=== PATIENT | female | born 1980 | race Caucasian/White ===

== ENCOUNTER 2016-11-07 15:01 | Emergency (ER) ==
[2016-11-07 15:05] VITALS: BP 148/93
--- NOTE | 2016-11-07 15:44 | PROVIDER DOCUMENTATION ---
HPI-Rash/Wound/ReCheck - General Chief Complaint: Rash Stated Complaint: FEMALE Time Seen by Provider: 11/07/16 15:40 Source: patient Allergies/Adverse Reactions: Allergies Allergy/AdvReac Type Severity Reaction Status Date / Time Unable to Assess Allergy Verified 11/07/16 15:44 Home Medications: Fenofibrate Nanocrystallized [Fenofibrate] 145 mg PO QHS 01/08/16 - History of Present Illness-Dermatology Nature of Presenting Problem: 36 y/o female, seen twice here for the same thing, c/o rash x 1 month. Yary thought it was an allergic reaction, however initial management did not help. At this point, she has tried Benadryl, Hydroxyzine, Elimite ointment, Pepcid without relief. The rash has not gotten better since then. She has also treied po and topical steroids without relif. No it is in the vaginal area. Review of Systems - Adult - REVIEW OF SYSTEMS - ADULT Constitutional: reports: no symptoms reported. denies: chills, fever, fatique Eyes: reports: no symptoms reported. denies: blurred vision, double vision, eye pain Ears, Nose, Mouth & Throat: reports: no symptoms reported. denies: ear pain, nose pain, throat pain Cardiovascular: reports: no symptoms reported. denies: chest pain, palpitations Respiratory: reports: no symptoms reported. denies: cough, shortness of breath , wheezing Gastrointestinal: reports: no symptoms reported. denies: abdominal pain, diarrhea, nausea, vomiting Genitourinary: reports: no symptoms reported. denies: dysuria, discharge, frequency, incontinence Musculoskeletal: reports: no symptoms reported. denies: bone pain, back pain, muscle aches, neck pain Integumentary: reports: see HPI, rash. denies: skin thickening Neurological: reports: no symptoms reported. denies: headache/migraines Psychiatric: reports: no symptoms reported Endocrine: reports: no symptoms reported Hematologic/Lymphatic: reports: no symptoms reported Allergic/Immunologic: reports: no symptoms reported All Other Systems: Reviewed and Negative Past History - Adult - PAST MEDICAL HISTORY-ADULT Review of Records: reports: Old Records Reviewed, Nursing Assessment Review, Medications Reviewed, Social history reviewed & non-contributory. Major Childhood Illnesses: reports: denies history Cardiovascular: reports: denies history Respiratory: reports: denies history Gastrointestinal: reports: denies history Obstetrical/Gynecological: reports: denies history Genitourinary: reports: denies history Musculoskeletal: reports: denies history Neurological: reports: headaches/migraines Psychiatric: reports: depression Endocrine/Immune: reports: Diabetes Diabetes Type: Type 2 Diabetes controlled by:: PO Meds Other Conditions: reports: denies history - PRIOR SURGERIES/PROCEDURES Surgical/Procedure History: reports: hysterectomy, , other (wisdom teeth) - PRIOR HOSPITALIZATIONS Prior Hospitalizations: reports: for other non-related - IMMUNIZATION STATUS Childhood Immunizations: See Nurse Assessment Flu Vaccine: See Nurse Assessment - FAMILY HISTORY Family History: reviewed, not pertinent Physical Exam-General - PHYSICAL EXAM-ADULT Initial Vital Signs Reviewed: Yes - CONSTITUTIONAL General Appearance: appears well, alert, no apparent distress - EYES Eyes: PERRL/EOMI, pink conjunctivae - HEAD, EARS, NOSE, MOUTH & THROAT HENMT: normocephalic/atraumatic, moist mucous membranes - NECK Neck: non-tender, full range of motion, supple, normal inspection - RESPIRATORY Respiratory: chest non-tender, lungs clear, normal breath sounds, no pleuratic chest pain, no respiratory distress, no accessory muscle use. negative: respiratory distress, decreased breath sounds, accessory muscle use, crackles, rales, rhonchi, wheezing - CARDIOVASCULAR Cardiovascular: normal peripheral pulses, regular rate, rhythm, no edema - LYMPHATIC Lymphatic: no adenopathy - MUSCULOSKELETAL Extremity: normal range of motion, non-tender, normal gait - SKIN Integumentary: normal color, normal turgor, warm/dry, rash (pruritic macular rash on the torso. There is a definite yest infection of the vaginal area.) - NEUROLOGIC Neurologic: grossly normal, no motor/sensory deficits - PSYCHIATRIC Psych/Mental Status: normal mood/affect, normal thought content, normal thought process, oriented x 3 Progress - PLAN OF CARE/RESULTS Progress/Plan/Lab Results: Vital Signs Temp Pulse Resp BP Pulse Ox 11/07/16 15:04 97.9 F 92 H 18 148/93 97 Unable to Assess Allergy (Verified 11/07/16 15:44) PATIENT STATES THAT SHE IS ALLERGIC TO AN ANTIBIOTIC BUT DOES NOT KNOW THE NAME OF IT. PATIENT STATES THAT THE ANTIBIOTIC MAKES HER BREAK OUT IN HIVES. Fenofibrate Nanocrystallized [Fenofibrate] 145 mg PO QHS 01/08/16 Glipizide [Glipizide ER] 10 mg PO DAILY #60 tab.er.24 09/11/16 Metformin [Glucophage] 1,000 mg PO BID CC #60 tablet 09/11/16 Ketoconazole 2% Cream [Nizoral 2% Cream] 1 applicatn TOP BID #1 tube 11/07/16 Ketoconazole 2% Shampoo [Nizoral 2% Shampoo] 1 applicatn TOP BID #1 bottle 11/07 Nystatin Cream [Mycostatin Cream] 1 applicatn TOP TID #1 tube 11/07/16 Departure - Departure Time of Disposition Order: 15:50 DIAGNOSIS: Rash and nonspecific skin eruption Disposition: HOME 01 Certified Medical Emergency: Emergent Condition: Stable Additional Instructions: Follow up with the umbrella cutter. ED Follow Up Instructions: You have been treated by a care provider in the Emergency Department. These instructions are being provided to you so you can have an understanding of how to care for yourself upon discharge. Upon discharge from the Emergency Department, you are responsible for making arrangements for follow-up care by a physician of your choice. Take all prescribed medications as directed. Return to the Emergency Department immediately for any new or worsening symptoms. You may call the Physician Referral phone number at [phone] to obtain a list of Physicians who are taking new patients. Prescriptions: Nystatin Cream [Mycostatin Cream] 1 applicatn TOP TID #1 tube Ketoconazole 2% Cream [Nizoral 2% Cream] 1 applicatn TOP BID #1 tube Ketoconazole 2% Shampoo [Nizoral 2% Shampoo] 1 applicatn TOP BID #1 bottle Referrals: Adela Frank MD [Primary Care Provider] - Elian Banks [NON-STAFF] - Attestation - Physician/ Mid-level Attestation Patient care was provided by Mid-level provider (FIRE CONTROL ASSISTANT/PA):: Yes Mid-level provider:: Juany Hutchison Mid-level documentation review:: The Mid-level provider documentation, treatment plan and medical decision making was reviewed by the physician who agrees with all treatment and medical decision making by the P.
== END 2016-11-07 16:41 | disposition home or self-care (01) ==
LOC: ED 15:01
DX: R21 Rash and other nonspecific skin eruption (principal); B37.3 Candidiasis of vulva and vagina; E11.9 Type 2 diabetes mellitus without complications; Z79.899 Other long term (current) drug therapy
CPT/HCPCS: 99282